=== PATIENT | female | born 1970 | race Caucasian/White ===

== ENCOUNTER 2019-09-12 17:25 | Emergency (ER) | payer OTHER ==
[~2019-09-12] VITALS: Ht 160 cm; Wt 49.9 kg
[~2019-09-12 17:25] MED LIST: ALBU90OI INH; AMOX500 PO; AZIT250 PO; Amoxicillin875 MG PO; CEPH500 PO; CODACE30 PO; CYCL10 PO; Crutch1 EACH TOP; Cyclobenzaprine5 MG PO; ERYT.5TO BOTHEYES; HYDACE5 PO; HYDR1TAB94 PO; IBUP800 PO; MULVITMINE PO; NAPR375 PO; Naprosyn250 MG PO; Norco 5-325 Ta1 EACH PO; ONDA4 PO; PARO10; PERM5TC TOP; PROACE100 PO; PROM25 PO; SULTRIDS PO; TYLENOL FLU; Ultram50 MG PO; Valium5 MG PO; Zofran Odt8 MG SL; [UNRECOGNIZED DRUG - REMARK]
== END 2019-09-12 19:58 | disposition left against medical advice (07) ==
LOC: ER 17:25
DX: Z53.21 Procedure and treatment not carried out due to patient leaving prior to being seen by health care provider (principal)
CPT/HCPCS: 73130; 99281; 99283-25

== ENCOUNTER 2020-12-26 15:13 | Emergency (ER) | payer OTHER ==
[~2020-12-26] VITALS: Ht 160 cm; Wt 52.2 kg
== END 2020-12-26 16:47 | disposition home or self-care (01) ==
LOC: ER 15:13
DX: U07.1 COVID-19 (principal)
CPT/HCPCS: 96361; 96374; 96375; 99284-25; J1885; J2405; J7030